=== PATIENT | male | born 1965 | race Hispanic/Latino ===

== ENCOUNTER 2018-07-31 23:28 | Inpatient (IN) | payer BC ==
[~2018-07-31] VITALS: Ht 167.6 cm; Wt 86.2 kg
[2018-08-01] VITALS (8 sets, daily range): BP systolic 101–114; BP diastolic 64–68
--- NOTE | 2018-08-01 00:51 | Diagnostic Imaging Report ---
KNEE LEFT THREE VIEWS HISTORY: Status post fall, left knee pain and swelling for one day. COMPARISON: None available. FINDINGS: Bones: Oblique linear lucency through the lateral femoral metaphysis without cortical disruption, not well seen on the lateral view. Osseous alignment is within normal limits. Joints: Mild medial and lateral compartment degenerative changes. Moderate patellofemoral compartment degenerative changes. Soft tissues: Moderate to large suprapatellar joint effusion. IMPRESSION: Oblique linear lucency through the lateral femoral metaphysis is not well visualized on the lateral view, but concerning for a non-displaced fracture. Moderate to large suprapatellar joint effusion. Signed by: DR. Shilo Rivera MD on 08/01/2018 12:47 AM
[2018-08-01] MEDS ORDERED: HYDROCODONE/APAP 10MG-325MG TAB PO ONE (01:00)
--- NOTE | 2018-08-01 01:35 | Diagnostic Imaging Report ---
EXAM: CT left knee WITHOUT contrast INDICATION: Knee pain status post fall. COMPARISON: Left knee radiographs 08/01/2018 TECHNIQUE: Left knee with scanned utilizing a multidetector helical scanner without administration of IV contrast. Routine protocol was performed. IV CONTRAST: None COMPLICATIONS: None RADIATION DOSE: Total DLP: 150.6 mGy*cm Estimated effective dose: (DLP x 0.015 x size factor) mSv CTDIvol has been reviewed. It is below the limits set by the Radiation Protocol Committee (RPC). FINDINGS: BONES: Non-displaced oblique fracture of the left femur extends from the lateral femoral metadiaphysis to the intercondylar notch. No additional fractures identified. Advanced degenerative changes of the lateral aspect of the patellofemoral compartment. SOFT TISSUES: Moderate sized suprapatellar joint effusion with hyperattenuating fluid consistent with hemarthrosis. IMPRESSION: Nondisplaced femoral fracture with fracture line extending from the lateral femoral metadiaphysis to the intercondylar notch. Moderate sized hemarthrosis. Signed by: DR. Shilo Rivera MD on 08/01/2018 1:31 AM
[2018-08-01 02:18] LABS: BASOPHILS % 0.2 % (0.0-1.0); EOSINOPHILS # (AUTO) 0.1 (0.0-0.4); EOSINOPHILS % 0.6 % (0.0-6.0); HEMATOCRIT 40.9 % (38.2-49.6); HEMOGLOBIN 14.1 g/dL (14.0-18.0); LYMPHOCYTES # (AUTO) 2.5 (1.0-3.2); MEAN CORPUSCULAR HEMOGLOBIN 29.5 pg (28-32); MEAN CORPUSCULAR HGB CONC 34.5 g/dL (31-35); MEAN CORPUSCULAR VOLUME 85.6 fL (81-99); MONOCYTES # (AUTO) 1.3 (0.2-0.8); MONOCYTES % 7.5 % (4.4-11.3); NEUTROPHILS # (AUTO) 13.8 (2.1-6.9); NEUTROPHILS % 77.2 % (38.7-80.0); PLATELET COUNT 348 x10e3/uL (140-360); RED BLOOD COUNT 4.78 x10e6/uL (4.3-5.7)
[2018-08-01 02:25] LABS: INR 0.96; PROTHROMBIN TIME 13.7 seconds (11.9-14.5)
[2018-08-01 02:26] LABS: PARTIAL THROMBOPLASTIN TIME 34.1 seconds (23.8-35.5)
[2018-08-01 02:36] LABS: ALANINE AMINOTRANSFERASE 13 IU/L (0-55); ALBUMIN 4.3 g/dL (3.5-5.0); ALBUMIN/GLOBULIN RATIO 1.4 (0.8-2.0); ALKALINE PHOSPHATASE 68 IU/L (40-150); ANION GAP 13.9 mmol/L (8-16); BLOOD UREA NITROGEN 18 mg/dL (7-26); BUN/CREATININE RATIO 21 (6-25); CALCIUM 9.6 mg/dL (8.4-10.2); CARBON DIOXIDE 22 mmol/L (22-29); CHLORIDE 96 mmol/L (98-107); CREATININE, SERUM 0.84 mg/dL (0.72-1.25); EST GLOMERULAR FILTRATION RATE > 60 ML/MIN (60-); GLUCOSE 98 mg/dL (74-118); POTASSIUM 3.9 mmol/L (3.5-5.1); SODIUM 128 mmol/L (136-145)
[2018-08-01] MEDS ORDERED: HYDROMORPHONE 1MG/1ML INJ IV PRN (03:00)
[2018-08-01] MEDS ORDERED: ONDANSETRON HCL INJ 2 MG/ML VIAL IV PRN (03:00)
--- OUTSIDE RECORDS SUMMARY | 2018-08-01 03:04 | XMS REPORT ---
Author Author [facility] Address Unknown Phone Unavailable Care Team Providers Care Senior Product Integrity Engineer Name Role Phone Jean-Claude JENSEN Unavailable Unavailable Problems This patient has no known problems. Allergies, Adverse Reactions, Alerts This patient has no known allergies or adverse reactions. Medications This patient has no known medications. Results Test Description Test Time Test Comments Text Results Atomic Results Result Comments CT KNEE LEFT WO 2018-08-01 01:24:00 [facility] [address] [address] Patient Name: DORY ORDONEZ MR #: [id number] : 1965 Age/Sex: 53/M Req #: [id number] [facility] Physician: Ordered by: JESUS MANUEL JENSEN MD Report #: [id number] Location: ER Room/Bed: Procedure: [id number] CT/CT KNEE LEFT WO Exam Date: 08/01/18 Exam Time: 0050 REPORT STATUS: Signed EXAM: CT left knee WITHOUT contrast INDICATION: Knee pain status post fall. COMPARISON: Left knee radiographs 08/01/2018 TECHNIQUE: Left knee with scanned utilizing a multidetector helical scanner without administration of IV contrast. Routine protocol was performed. IV CONTRAST: None COMPLICATIONS: None RADIATION DOSE: Total DLP: 150.6 mGy*cm Estimated effective dose: (DLP x 0.015 x size factor) mSv CTDIvol has been reviewed. It is below the limits set by the Radiation Protocol Committee (RPC). FINDINGS: BONES: Non-displaced oblique fracture of the left femur extends from the lateral femoral metadiaphysis to the intercondylar notch. No additional fractures identified. Advanced degenerative changes of the lateral aspect of the patellofemoral compartment. SOFT TISSUES: Moderate sized suprapatellar joint effusion with hyperattenuating fluid consistent with hemarthrosis. IMPRESSION: Nondisplaced femoral fracture with fracture line extending from the lateral femoral metadiaphysis to the intercondylar notch. Moderate sized hemarthrosis. Signed by: DR. Shilo Rivera MD on 08/01/2018 1:31 AM Dictated By: SHILO RIVERA MD 0 Transcribed By: WILLIAMS on 08/01/18130 COPY TO: JESUS MANUEL JENSEN MD KNEE LEFT THREE VIEWS 2018-08-01 00:35:00 [address] [address] Patient Name: DORY ORDONEZ MR #: [id number] : 1965 Age/Sex: 53/M Req #: [id number] Adm Physician: Ordered by: JESUS MANUEL JENSEN MD Report #: [id number] Location: ER Room/Bed: Procedure: [id number] DX/KNEE LEFT THREE VIEWS Exam Date: 08/01/18 Exam Time: 0010 REPORT STATUS: Signed KNEE LEFT THREE VIEWS HISTORY: Status post fall, left knee pain and swelling for one day. COMPARISON: None available. FINDINGS: Bones: Oblique linear lucency through the lateral femoral metaphysis without cortical disruption, not well seen on the lateral view. Osseous alignment is within normal limits. Joints: Mild medial and lateral compartment degenerative changes. Moderate patellofemoral compartment degenerative changes. Soft tissues: Moderate to large suprapatellar joint effusion. IMPRESSION: Oblique linear lucency through the lateral femoral metaphysis is not well visualized on the lateral view, but concerning for a non-displaced fracture. Moderate to large suprapatellar joint effusion. Signed by: DR. Shilo Rivera MD on 08/01/2018 12:47 AM Dictated By: SHILO RIVERA MD Transcribed By: WILLIAMS on 08/01/1846 COPY TO: JESUS MANUEL JENSEN MD
[2018-08-01] MEDS ORDERED: LISINOPRIL10 MG PO (04:32)
[2018-08-01] MEDS ORDERED: METOPROLOL-HCT1 EACH PO (04:32)
[2018-08-01] MEDS ORDERED: ASPIRIN325 MG PO (04:32)
[2018-08-01] MEDS: SODIUM CHLORIDE 0.9% 1000ML 1,000 ML IV SCH ×2 (04:33→11:51)
--- NOTE | 2018-08-01 09:41 | History and Physical ---
A 53-year-old male. CLINICAL HISTORY: This is a 53-year-old male, patient of Dr. Jackelyn Blackburn, who presented to the emergency room on July 31, 2018, with accidental right knee fracture on the job. This patient has a history of hypertension and tachycardia. He took metoprolol for tachycardia, hydrochlorothiazide and lisinopril for hypertension. There is no previous history of atrial fibrillation. He is not on any anticoagulants. He had no syncopal spell, but accidentally fell and fractured his right knee at the femur level. He required surgery. PAST MEDICAL HISTORY: Remarkable for hypertension. Denies any diabetes, hyperlipidemia. PAST SURGERIES: Includes left hand surgery 30 years ago. PERSONAL/SOCIAL HISTORY: Denies smoking or drinking. Works as a spray i painter. FAMILY HISTORY: Remarkable for hypertension in both parents and brother. REVIEW OF SYSTEMS: Noncontributory. PHYSICAL EXAMINATION GENERAL: He is alert and coherent. VITAL SIGNS: Stable. CARDIAC: Jugular veins are not distended. S1 and S2 are regular. There no appreciable murmurs. LUNGS: Clear. ABDOMEN: Soft. Bowel sounds are present. EXTREMITIES: Show no cyanosis, clubbing or edema. LABORATORY STUDIES: INR was 0.9. Sodium 128, potassium 3.9, bicarb 22, creatinine 0.8. White count of 7000, hemoglobin 14.1 and platelet count 348,000. IMPRESSION 1. Acceptable risk from the cardiac standpoint for the planned right knee surgery. 2. Accidental right knee fracture without evidence of syncope. 3. History of tachycardia and palpitations, on metoprolol. 4. Hypertension. 5. Hyponatremia: Serum sodium 128 exacerbated by lisinopril and hydrochlorothiazide. 6. History of left hand surgery. RECOMMENDATIONS: I have explained the risks from the cardiac standpoint for the planned right knee surgery. Patient and family verbalized understanding and willing to proceed. In the meantime, we will repeat the CBC and correct the hyponatremia. I have discussed this case with Dr. Mesa. Job#: [id number] RI cc:JACKELYN BLACKBURN MD
[2018-08-01] MEDS ORDERED: HYDROCODONE/APAP 7.5MG-325MG 1 EA TAB PO PRN (15:30)
--- NOTE | 2018-08-01 23:16 | Consultation ---
DATE OF CONSULTATION: August 01, 2018 CHIEF COMPLAINT: Left leg pain. 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 He fell last night and noticed the immediate onset of left thigh pain. He was brought into the emergency room where he was noted to have a distal femur fracture. Orthopedic consultation was requested. PAST MEDICAL HISTORY: Hypertension and tachycardia. PREVIOUS SURGERIES: Hand surgery 30 years ago. MEDICATIONS: Metoprolol. ALLERGIES: NONE. SOCIAL HISTORY: He works as an industrial engineering technologist. He does not smoke or drink. He is and has a couple of children. PHYSICAL EXAMINATION GENERAL: He is awake and alert and oriented. He is in no obvious distress. EXTREMITIES: His left leg is in a knee immobilizer. There is swelling and tenderness over the distal thigh. There are no puncture wounds or abrasions. He has limited knee range of motion. NEUROVASCULAR: Normal. X-RAYS: Show a nondisplaced intra-articular fracture of the distal femur. IMPRESSION: Left distal femur fracture. The findings and options were discussed with the patient and his family. I have recommended open reduction with internal fixation. He will go through a quick preoperative medical evaluation. The risks and benefits of the surgery were explained. The recovery was discussed. The patient states he understands and agrees to proceed. Job#: [id number]
[2018-08-02] VITALS (8 sets, daily range): BP systolic 103–125; BP diastolic 60–78
[2018-08-02] MEDS ORDERED: HYDROMORPHONE 2MG/ML 2 MG/ML ML IV PRN (03:15)
[2018-08-02 05:47] LABS: BASOPHILS % 0.4 % (0.0-1.0); EOSINOPHILS # (AUTO) 0.2 (0.0-0.4); EOSINOPHILS % 1.9 % (0.0-6.0); HEMATOCRIT 37.5 % (38.2-49.6); HEMOGLOBIN 12.5 g/dL (14.0-18.0); LYMPHOCYTES # (AUTO) 2.6 (1.0-3.2); LYMPHOCYTES % 26.5 % (18.0-39.1); MEAN CORPUSCULAR HEMOGLOBIN 29.1 pg (28-32); MEAN CORPUSCULAR HGB CONC 33.3 g/dL (31-35); MEAN CORPUSCULAR VOLUME 87.4 fL (81-99); MONOCYTES # (AUTO) 0.9 (0.2-0.8); PLATELET COUNT 282 x10e3/uL (140-360); RED BLOOD COUNT 4.29 x10e6/uL (4.3-5.7); RED CELL DISTRIBUTION WIDTH 13.2 % (11.7-14.4)
[2018-08-02 06:33] LABS: ALANINE AMINOTRANSFERASE 10 IU/L (0-55); ALBUMIN 3.3 g/dL (3.5-5.0); ALBUMIN/GLOBULIN RATIO 1.3 (0.8-2.0); ALKALINE PHOSPHATASE 56 IU/L (40-150); ANION GAP 13.6 mmol/L (8-16); BLOOD UREA NITROGEN 13 mg/dL (7-26); BUN/CREATININE RATIO 16 (6-25); CALCIUM 8.7 mg/dL (8.4-10.2); CARBON DIOXIDE 23 mmol/L (22-29); CHLORIDE 102 mmol/L (98-107); CREATININE, SERUM 0.79 mg/dL (0.72-1.25); EST GLOMERULAR FILTRATION RATE > 60 ML/MIN (60-); GLUCOSE 90 mg/dL (74-118); POTASSIUM 4.6 mmol/L (3.5-5.1); SODIUM 134 mmol/L (136-145)
[2018-08-02] MEDS: SODIUM CHLORIDE 0.9% 1000ML 1,000 ML IV SCH ×3 (07:50→23:31)
[2018-08-02] MEDS ORDERED: BACITRACIN 50,000 UNIT VIAL ONE (10:47)
[2018-08-02] MEDS ORDERED: MUPIROCIN 2% OINT 22 GM TUBE ONE (10:47)
[2018-08-02] MEDS ORDERED: CLINDAMYCIN PHOS 900MG/ 50ML 50 ML IV ONE (11:00)
[2018-08-02] MEDS ORDERED: HYDROCODONE/APAP 5MG-325MG TAB PO PRN (13:45)
[2018-08-02] MEDS ORDERED: DIPHENHYDRAMINE HCL INJ 50 MG/ML VIAL IM/IV PRN (13:45)
[2018-08-02] MEDS ORDERED: ACETAMINOPHEN 650 MG SUPP PR PRN (13:45)
[2018-08-02] MEDS ORDERED: HYDROCODONE/APAP 7.5MG-325MG 1 EA TAB PO PRN (13:45)
[2018-08-02] MEDS ORDERED: KETOROLAC TROMETHAMINE 30 MG/ML VIAL IV PRN (13:45)
[2018-08-02] MEDS ORDERED: ONDANSETRON HCL INJ 2 MG/ML VIAL IV PRN (13:45)
[2018-08-02] MEDS ORDERED: DOCUSATE SODIUM 100 MG CAP PO PRN (13:45)
[2018-08-02] MEDS ORDERED: PROMETHAZINE HCL (IM) 25 MG/ML VIAL IM PRN (13:45)
[2018-08-02] MEDS ORDERED: CLINDAMYCIN PHOS 900MG/ 50ML 50 ML IV SCH (14:00)
[2018-08-02] MEDS ORDERED: MIDAZOLAM HCL 2 MG/2 ML VIAL ONE (15:06)
[2018-08-02] MEDS ORDERED: FENTANYL CITRATE/PF 100MCG/2 ML INJ ONE (15:06)
--- NOTE | 2018-08-02 16:20 | Operative Report ---
DATE OF PROCEDURE: August 02, 2018 HAZMAT TANKER DRIVER: Billy Bates PA-C PREOPERATIVE DIAGNOSIS: Left intra-articular distal femur fracture. POSTOPERATIVE DIAGNOSIS: Left intra-articular distal femur fracture. PROCEDURE: Open reduction, internal fixation, left intra-articular distal femur fracture. INDICATIONS: The patient is a 53-year-old gentleman, who sustained a left distal femur fracture. The fracture extends into the joint, but is minimally displaced. We have discussed the findings and options. We recommend open reduction with internal fixation. The risks and benefits have been explained. He states he understands and wishes to proceed. PROCEDURE: The patient was brought to the operating room and placed under general anesthetic. He received prophylactic antibiotics prior to this surgery. He was positioned in the floppy lateral position. His left lower extremity was prepped and draped in a sterile manner. A preoperative time-out was performed. A lateral approach was made to the distal femur. The iliotibial band was split in line with its fibers. The vastus lateralis was elevated from the posterior intermuscular septum. Perforating vessels were ligated. The fracture was carefully exposed. A large fracture hematoma from within the left knee joint was decompressed. A C-arm image intensifier was used to confirm near-anatomic reduction of the articular surface. A [employer] periarticular locking plate was then placed onto the distal femur. This was fixed with a combination of compression and locking screws. Intraoperative x-rays confirmed anatomic reduction and good positioning of the hardware. The wound was thoroughly irrigated. There was no significant bleeding detected. The iliotibial band was closed with interrupted 0-Vicryl stitches. The skin was closed with subcuticular Vicryl and magdalene. A sterile bandage and a hinged knee brace were applied. The patient was extubated and transported to the recovery room in stable condition. Estimated blood loss was 50 mL. At the end of the procedure, all needle and sponge counts were correct. Job#: [id number] CQ
[2018-08-02] MEDS: ACETAMINOPHEN 1000 MG/100 ML IV SCH (16:30)
[2018-08-02] MEDS ORDERED: CELECOXIB 100 MG CAP PO SCH (17:00)
[2018-08-02] MEDS: CELECOXIB 200 MG CAP PO SCH (17:58)
[2018-08-02] MEDS: ASPIRIN 325 MG TAB PO SCH (17:58)
[2018-08-02] MEDS: CLINDAMYCIN PHOS 900MG/ 50ML 50 ML IV SCH (20:13)
[2018-08-02] MEDS ORDERED: ZOLPIDEM TARTRATE 5 MG TAB PO PRN (21:00)
[2018-08-03] VITALS: BP 110/64
[2018-08-03 04:00] VITALS: BP 111/64
[2018-08-03] MEDS: CLINDAMYCIN PHOS 900MG/ 50ML 50 ML IV SCH ×2 (04:42→13:00)
[2018-08-03 05:25] LABS: HEMATOCRIT 33.8 % (38.2-49.6); HEMOGLOBIN 11.5 g/dL (14.0-18.0)
[2018-08-03] MEDS: ACETAMINOPHEN 1000 MG/100 ML IV SCH ×3 (06:00→12:00)
[2018-08-03] MEDS: SODIUM CHLORIDE 0.9% 1000ML 1,000 ML IV SCH (08:00)
[2018-08-03] MEDS ORDERED: SODIUM CHLORIDE 452MG TAB PO ONE (08:00)
[2018-08-03] MEDS ORDERED: SODIUM CHLORIDE 452MG TAB PO NR (08:15)
[2018-08-03 08:38] VITALS: BP 119/69
--- NOTE | 2018-08-03 09:08 | Discharge Summary ---
CLINICAL HISTORY: This 53-year-old man admitted via the emergency room because of accidental right knee fracture without any evidence of syncope. Please refer to my previous dictation concerning details of current illness, past medical history, personal and social history, family history, review of systems, physical examination, initial laboratory studies. HOSPITAL COURSE: The patient was found to have severe hyponatremia, which was probably caused by combination of diuretics and lisinopril. He was given normal saline with correction of sodium to 134 prior to knee surgery. Subsequently, he was given additional sodium tablets. He was cautioned against drinking too much fluid. During this hospitalization, his blood pressure was low in the range of 110 and not requiring any blood pressure medications. He is discharged without any blood pressure medications, to adjust in the future, preferably not using any diuretics nor any KAREN inhibitors. He is cautioned against drinking too much fluid. He underwent surgery successfully and was felt to be stable for discharge to get outpatient therapy. DISCHARGE DIAGNOSES: 1. Accidental right knee fracture without any evidence of syncope, successfully treated with surgery, Dr. Mesa. 2. History of tachycardia and palpitations, treated with metoprolol with no evidence of tachycardia during this hospitalization. 3. Severe hyponatremia due to combination of diuretics and angiotensin-converting enzyme inhibitors. 4. History of hypertension. 5. History of left hand surgery. ADENIKE ATKINSON MD Job#: [id number] cc:MD ALEXIS LINTON MD
[2018-08-03] MEDS: CELECOXIB 200 MG CAP PO SCH (10:00)
[2018-08-03] MEDS: ASPIRIN 325 MG TAB PO SCH (10:00)
[2018-08-03] MEDS ORDERED: LIDOCAINE HCL 2% LOCAL INJ 5 ML SDV VIAL INJ ONE (12:21)
[2018-08-03] MEDS ORDERED: ACETAMINOPHEN 1000 MG/100 ML IV ONE (12:21)
[2018-08-03] MEDS ORDERED: DEXAMETHASONE SOD PHOS INJ 4 MG/ML VIAL IV ONE (12:21)
[2018-08-03 12:39] VITALS: BP 119/69
[2018-08-03] MEDS ORDERED: ACETAMINOPHEN 1000 MG/100 ML IV PRN (13:45)
[2018-08-03 14:45] VITALS: BP 104/59
== END 2018-08-03 16:45 | disposition home health service (06) | DRG 481 ==
LOC: ER 23:28 → ERHOLD 08-01 03:02 → MED/SURG 08-01 03:55
PROVIDERS: ADMIT Internal Medicine Cardiovascular Disease; ATTEND Internal Medicine Cardiovascular Disease
PROC: 0QSC04Z Reposition Left Lower Femur with Internal Fixation Device, Open Approach (ICD-10-PCS; principal; 2018-08-02 12:00)
DX: S72.425A Nondisplaced fracture of lateral condyle of left femur, initial encounter for closed fracture (principal); E87.1 Hypo-osmolality and hyponatremia; W19.XXXA Unspecified fall, initial encounter; Y93.H3 Activity, building and construction; Y92.9 Unspecified place or not applicable; I10 Essential (primary) hypertension; T46.4X5A Adverse effect of angiotensin-converting-enzyme inhibitors, initial encounter; T50.2X5A Adverse effect of carbonic-anhydrase inhibitors, benzothiadiazides and other diuretics, initial encounter
CPT/HCPCS: 36415; 76001; 80053; 85014; 85018; 85025; 85610; 85730; 86850; 86900; 93005; 99284; C1713; J1100; J1885; J2001; J2250; J7030

== ENCOUNTER 2018-10-24 07:58 | Outpatient (RCR) | payer OTHER ==
[~2018-10-24 07:58] MED LIST: ASPIRIN325 MG PO; LISINOPRIL10 MG PO; METOPROLOL-HCT1 EACH PO
== END 2018-10-25 ==
LOC: PT 07:58
PROVIDERS: ATTEND Specialist
DX: S72.462D Displaced supracondylar fracture with intracondylar extension of lower end of left femur, subsequent encounter for closed fracture with routine healing (principal); Z47.89 Encounter for other orthopedic aftercare; M25.562 Pain in left knee; M25.662 Stiffness of left knee, not elsewhere classified; R26.2 Difficulty in walking, not elsewhere classified; M62.81 Muscle weakness (generalized)

== ENCOUNTER 2018-11-21 09:00 | Outpatient (RCR) | payer OTHER | END 2018-11-22 | LOC: PT 09:00 | PROVIDERS: ATTEND Specialist | DX: S72.462D Displaced supracondylar fracture with intracondylar extension of lower end of left femur, subsequent encounter for closed fracture with routine healing (principal); Z47.89 Encounter for other orthopedic aftercare; M25.562 Pain in left knee; M25.662 Stiffness of left knee, not elsewhere classified; R26.2 Difficulty in walking, not elsewhere classified; M62.81 Muscle weakness (generalized) ==

== ENCOUNTER 2018-12-17 08:00 | Outpatient (RCR) | payer OTHER | END 2018-12-23 | LOC: PT 08:00 | PROVIDERS: ATTEND Specialist | DX: S72.462D Displaced supracondylar fracture with intracondylar extension of lower end of left femur, subsequent encounter for closed fracture with routine healing (principal); Z47.89 Encounter for other orthopedic aftercare; M25.562 Pain in left knee; M25.662 Stiffness of left knee, not elsewhere classified; R26.2 Difficulty in walking, not elsewhere classified; M62.81 Muscle weakness (generalized) ==